=== PATIENT | male | born 1940 | race Caucasian/White ===

== ENCOUNTER 2018-02-25 22:45 | Inpatient (IN) | payer MEDICARE ==
[2018-02-26] MEDS ORDERED: NORMAL SALINE 1000 ML 1,000 ML IV ONE (02:52)
--- NOTE | 2018-02-26 02:53 | ER Document Report ---
ED General - General Chief Complaint: Dizziness Stated Complaint: SHORTNESS OF BREATH Time Seen by Provider: 02/26/18 02:32 Notes: Patient is a 77-year-old male that comes to the emergency department for chief complaint of weakness, dizziness, shortness of breath. He states that when he stands up he feels suddenly lightheaded and short of breath. He denies any chest pain, syncope, fever. Patient states he has been worsening for the past 3 days, he admits that he has been working outside almost constantly with [employer]. He admits his urine is very dark in color. Past medical history includes hypertension, hyperlipidemia, type 2 diabetes. TRAVEL OUTSIDE OF THE [place] IN LAST 30 DAYS: No - Related Data Allergies/Adverse Reactions: No Known Allergies Allergy (Unverified 02/26/18 07:04) Past Medical History - General Information source: Patient, Relative - Social History Smoking Status: Never Smoker Drug Abuse: None Lives with: Family Family History: Reviewed & Not Pertinent - Past Medical History Cardiac Medical History: Reports: Hx Hypercholesterolemia, Hx Hypertension Endocrine Medical History: Reports: Hx Diabetes Mellitus Type 2 - Immunizations Hx Diphtheria, Pertussis, Tetanus Vaccination: Yes Review of Systems - Review of Systems Constitutional: No symptoms reported EENT: No symptoms reported Cardiovascular: See HPI Respiratory: See HPI Gastrointestinal: No symptoms reported Genitourinary: No symptoms reported Male Genitourinary: No symptoms reported Musculoskeletal: No symptoms reported Skin: No symptoms reported Hematologic/Lymphatic: No symptoms reported Neurological/Psychological: No symptoms reported Physical Exam - Vital signs Vitals: Temp Pulse Resp BP Pulse Ox 99.6 F 98 20 116/46 L 93 02/25/18 23:02 02/25/18 23:02 02/25/18 23:02 02/25/18 23:02 02/25/18 23:02 - Notes Notes: GENERAL: Alert, interacts well. No acute distress. HEAD: Normocephalic, atraumatic. EYES: Pupils equal, round, and reactive to light. Yellowish sclera. Extraocular movements intact. ENT: Oral mucosa moist, tongue midline. [Nares patent, no nasal septal hematoma , TM's intact.] NECK: Full range of motion. Supple. Trachea midline. LUNGS: Clear to auscultation bilaterally, no wheezes, rales, or rhonchi. No respiratory distress. HEART: Regular rate and rhythm. ABDOMEN: Soft, non-tender. Non-distended. Bowel sounds present in all 4 quadrants. EXTREMITIES: Moves all 4 extremities spontaneously. No edema, normal radial and dorsalis pedis pulses bilaterally. No cyanosis. BACK: no cervical, thoracic, lumbar midline tenderness. No saddle anesthesia, normal distal neurovascular exam. NEUROLOGICAL: Alert and oriented x3. Normal speech. [cranial nerves II through XII grossly intact]. PSYCH: Normal affect, normal mood. SKIN: Jaundiced skin Course - Re-evaluation Re-evalutation: Patient is jaundiced, however he is alert, well-appearing, clear lungs, soft abdomen, no signs of distress. He is not confused. Chest x-ray unremarkable. CBC shows significant anemia with hemoglobin of 6.5, macrocytic. Chemistry shows total bilirubin of 13.9, direct of 4.2. Urine is very dark. Type and screen has been performed, transfusion blood products ordered. No gross bleeding on exam, Hemoccult is negative for blood. Discussed with Dr. Martin, recommends ultrasound of the spleen as well. Ultrasound of the spleen nonspecific. 02/26/18 07:[address] Carrillo, hematology instructional interventionist, he recommends transfusion, Solu- Medrol 60 mg IV every 6 hours, additional laboratory studies requested. Recommends admission to the hospital. Patient and son are in agreement with this plan. 02/26/18 07:48 Spoke with Dasha Tate NP, patient will be admitted to the [facility]. - Vital Signs Vital signs: Temp Pulse Resp BP Pulse Ox 99.6 F 98 21 H 109/53 L 97 02/25/18 23:02 02/25/18 23:02 02/26/18 07:01 02/26/18 07:01 02/26/18 07:01 - Laboratory Result Diagrams: 02/26/18 02:31 02/26/18 02:31 Laboratory results interpreted by me: 02/26/18 02/26/18 02/26/18 02:31 02:31 02:31 RBC 1.74 L Hgb 6.5 L Hct 18.1 L MCV 104 H MCH 37.2 H Band Neutrophils % 2 L Lymphocytes % (Manual) 12 L Metamyelocytes % 3 H Myelocytes % 1 H BUN 61 H Creatinine 1.33 H Est GFR (Non-Af Amer) 52 L Glucose 126 H Total Bilirubin 13.9 H Direct Bilirubin 4.2 H AST 102 H ALT 18 L Urine Protein Urine Blood Urine Urobilinogen Crossmatch See Detail 02/26/18 02/26/18 04:15 05:32 RBC Hgb Hct MCV MCH Band Neutrophils % Lymphocytes % (Manual) Metamyelocytes % Myelocytes % BUN Creatinine Est GFR (Non-Af Amer) Glucose Total Bilirubin Direct Bilirubin AST ALT Urine Protein 30 H Urine Blood LARGE H Urine Urobilinogen 4.0 H Crossmatch See Detail Discharge - Discharge Clinical Impression: Shortness of breath, Symptomatic anemia, Dizziness, Jaundice Hemolytic anemia Qualifiers: Hemolytic anemia type: acquired, unspecified Qualified Code(s): D59.9 - Acquired hemolytic anemia, unspecified; D59 - Acquired hemolytic anemia Condition: Stable Disposition: ADMITTED INPATIENT Admitting Provider: Hospitalist Unit Admitted: IMCU Referrals: KAUR LEONE MD [Primary Care Provider] - Follow up as needed
[2018-02-26 03:27] LABS: HEMATOCRIT 18.1 % (37.9-51.0); MEAN CORPUSCULAR HEMOGLOBIN 37.2 pg (27.0-33.4); MEAN CORPUSCULAR HGB CONC 35.8 g/dL (32.0-36.0); MEAN CORPUSCULAR VOLUME 104 fl (80-97); PLATELET COUNT 204 10^3/uL (150-450); RED BLOOD COUNT 1.74 10^6/uL (4.35-5.55); RED CELL DISTRIBUTION WIDTH 12.4 % (11.5-14.0); WHITE BLOOD COUNT 8.6 10^3/uL (4.0-10.5)
--- NOTE | 2018-02-26 03:36 | RADIOLOGY REPORT (SQ) ---
EXAM DESCRIPTION: XR CHEST 1 VIEW COMPLETED DATE/TME: 02/26/2018 02:51 CLINICAL HISTORY: short of breath, lightheaded COMPARISON: None. FINDINGS: Single frontal view of the chest. Tortuosity of thoracic aorta. Low lung volumes. Heart is normal enlarged. Leads overlie the chest. No consolidation, pneumothorax, or pleural effusion. No displaced rib fractures identified. Upper abdominal soft tissues are unremarkable. IMPRESSION: 1. No acute pulmonary process identified.
[2018-02-26 03:37] LABS: ALANINE AMINOTRANSFERASE 18 U/L (21-72); ALKALINE PHOSPHATASE 82 U/L (38-126); ASPARTATE AMINO TRANSFERASE 102 U/L (17-59); BILIRUBIN,DIRECT 4.2 mg/dL (0.0-0.4); BILIRUBIN,TOTAL 13.9 mg/dL (0.2-1.3); BLOOD UREA NITROGEN 61 mg/dL (7-20); CALCIUM 9.8 mg/dL (8.4-10.2); CREATINE KINASE 141 U/L (55-170); GLUCOSE 126 mg/dL (75-110); POTASSIUM 4.8 mmol/L (3.6-5.0); TOTAL PROTEIN 7.3 g/dL (6.3-8.2)
[2018-02-26 03:42] LABS: CARBON DIOXIDE 30 mmol/L (22-30); CHLORIDE 106 mmol/L (98-107); SODIUM 141.1 mmol/L (137-145)
[2018-02-26 04:03] LABS: ABSOLUTE MONOCYTES # (MANUAL) 0.5 10^3/uL (0.1-1.4); ABSOLUTE NEUTROPHILS# (MANUAL) 6.6 10^3/uL (1.7-8.2); BAND NEUTROPHILS % (MANUAL) 2 % (3-5); BASOPHILS % (MANUAL) 0 % (0-2); EOSINOPHILS % (MANUAL) 5 % (0-6); LYMPHOCYTES % (MANUAL) 12 % (13-45); METAMYELOCYTES % (MANUAL) 3 % (0); MONOCYTES % (MANUAL) 6 % (3-13); MYELOCYTES % (MANUAL) 1 % (0); SEGMENTED NEUTROPHILS % (MAN) 71 % (42-78); TOTAL CELLS COUNTED 100
[2018-02-26 04:05] LABS: ANISOCYTOSIS 2+; PLATELET COMMENT ADEQUATE; POLYCHROMASIA SLIGHT
[2018-02-26 04:08] LABS: ANION GAP 5 (5-19)
[2018-02-26] MEDS ORDERED: NORMAL SALINE 250 ML IV PRN ×2 (04:18)
[2018-02-26] MEDS ORDERED: ONDANSETRON HCL INJ/PF 4 MG/2 ML SDV IV ONE (04:30)
--- NOTE | 2018-02-26 06:09 | RADIOLOGY REPORT (SQ) ---
CLINICAL DATA: 77-year-old male with hemolysis and low hemoglobin, evaluate spleen. TECHNICAL DATA: Limited sonographic imaging of the left upper quadrant was performed. Comparison: None. FINDINGS: Sonographic imaging of the left upper quadrant reveals the spleen to be normal in size and configuration. The spleen measures 11.5 x 8.7 x 4.2 cm. The spleen appears to be slightly more hypoechoic than the left kidney. The significance of this is not certain. There are some scattered echogenic foci within the spleen consistent with granulomas. Doppler imaging demonstrates normal color flow within the spleen. IMPRESSION: 1. The spleen is normal in size. 2. Decreased echogenicity of the spleen relative to the left kidney of unclear etiology. Underlying chronic renal disease is not excluded. 3. Evidence of prior granulomatous disease.
[2018-02-26 06:23] LABS: APPEARANCE,URINE SLIGHTLY-CLOUDY; BILIRUBIN,URINE NEGATIVE (NEGATIVE); GLUCOSE, URINE NEGATIVE (NEGATIVE); KETONES,URINE NEGATIVE (NEGATIVE); LEUKOCYTE ESTERASE,URINE NEGATIVE (NEGATIVE); NITRITE,URINE NEGATIVE (NEGATIVE); PROTEIN,URINE 30 mg/dL (NEGATIVE); URINE SPECIFIC GRAVITY 1.013
[2018-02-26 06:25] LABS: COLOR,URINE DARK YELLOW
[2018-02-26] MEDS ORDERED: METHYLPREDNISOLONE INJ 40 MG/1 ML SDV IV SCH (07:45)
[2018-02-26 08:07] LABS: ABSOLUTE RETICS # 0.056 10^6/uL (0.028-0.122); RETICULOCYTE COUNT (AUTO) 3.22 % (0.66-2.85)
--- NOTE | 2018-02-26 09:01 | PDOC CONSULTATION ---
Consultation Consult Date: 02/26/18 Attending physician:: ROYCE ZAMARRIPA Consult reason:: Asked by ER to see patient with severe anemia History of Present Illness Admission Date/PCP: 02/26/18 08:13 KAUR LEONE MD Patient complains of: Weakness, shortness of breath History of Present Illness: ERNST ARAUJO is a 77 year old male with recent history of weakness and shortness of breath. His son was with him at bedside, over the last 2-3 weeks has been having increasing shortness of breath and weakness, over the last 2 days prior to admission he has had dark urine, upon presentation he had a hemoglobin of 6.5, MCV 101, reticulocyte count is elevated, Hemoccult is negative, bilirubin is 13, direct is 4. So mostly in direct bilirubin. [place] to be consistent with hemolytic anemia. He does not have any new medications that have started. He does not have any fevers chills sweats or any other signs or symptoms of infection. He denies any black stool or blood in stool or any other signs or symptoms of bleeding. Prior to this, he was being seen by Dr. Leone, he just started seeing him about a month ago. Prior to that he was living in [place]. He tells me about 3 months ago he went to the ED in [place] because he was not feeling good, he does not remember what they did or what they told him at that time. LDH and haptoglobin are pending. I instructed the ER to give him 60 mg of Solu-Medrol and put him on Solu-Medrol 60 mg every 6 hours. Blood is being typed and crossed, and antibody evaluation is being done. Past Medical History Cardiac Medical History: Reports: DVT - Left lower extremity DVT 2014, was taken off anticoagulation, Hyperlipidema, Hypertension Endocrine Medical History: Reports: Diabetes Mellitus Type 2 Past Surgical History Past Surgical History: Reports: Herniorrhaphy Social History Information Source: Patient Lives with: Family Smoking Status: Former Smoker Cigarettes Packs Per Day: 1 Number of Years Smokin Last Time Smoked: 35 years ago Frequency of Alcohol Use: Occasional Drugs: None Hx Prescription Drug Abuse: No - Advance Directive Resuscitation Status: Full Code Family History Family History: Reviewed & Not Pertinent Parental Family History Reviewed: Yes Children Family History Reviewed: Yes Sibling(s) Family History Reviewed.: Yes Medication/Allergy Allergies/Adverse Reactions: No Known Allergies Allergy (Unverified 02/26/18 07:04) Review of Systems Constitutional: PRESENT: fatigue, weakness Cardiovascular: PRESENT: dyspnea on exertion Respiratory: PRESENT: dyspnea Gastrointestinal: ABSENT: abdominal pain, constipation, diarrhea, hematemesis, hematochezia, nausea, vomiting Integumentary: ABSENT: rash, wounds Neurological: ABSENT: abnormal gait, abnormal speech, confusion, dizziness, focal weakness, syncope Psychiatric: ABSENT: anxiety, depression, homidical ideation, suicidal ideation Physical Exam Vital Signs: Temp Pulse Resp BP Pulse Ox 99.6 F 98 21 H 109/53 L 97 02/25/18 23:02 02/25/18 23:02 02/26/18 07:01 02/26/18 07:01 02/26/18 07:01 General appearance: PRESENT: no acute distress Head exam: PRESENT: atraumatic Eye exam: PRESENT: scleral icterus Mouth exam: PRESENT: dry mucosa Respiratory exam: PRESENT: clear to auscultation katie. ABSENT: rales, rhonchi, wheezes Cardiovascular exam: PRESENT: tachycardia GI/Abdominal exam: PRESENT: normal bowel sounds, soft. ABSENT: distended, guarding, mass, organolmegaly, rebound, tenderness Rectal exam: PRESENT: deferred Neurological exam: PRESENT: alert, awake, oriented to person, oriented to place , oriented to time, oriented to situation, CN II-XII grossly intact. ABSENT: motor sensory deficit Skin exam: PRESENT: jaundice Results Impressions: Chest X-Ray 02/26/18 02:51 IMPRESSION: 1. No acute pulmonary process identified. Abdomen Ultrasound 02/26/18 04:28 IMPRESSION: 1. The spleen is normal in size. 2. Decreased echogenicity of the spleen relative to the left kidney of unclear etiology. Underlying chronic renal disease is not excluded. 3. Evidence of prior granulomatous disease. Status: Image reviewed by me Assessment & Plan - Diagnosis (1) Hemolytic anemia Qualifiers: Hemolytic anemia type: acquired, unspecified Qualified Code(s): D59.9 - Acquired hemolytic anemia, unspecified; D59 - Acquired hemolytic anemia Is this a current diagnosis for this admission?: Yes Plan: He certainly does appear to have a hemolytic anemia, direct antibody test as well as evaluation by blood bank is being done. I have started him on high- dose steroids. Will initiate folic acid 1 mg daily. Ultimately may benefit from IVIG and Rituxan. Patient should be admitted to the hospitalist team and we will continue to see patient. - Time Time Spent: Greater than 70 Minutes - Inpatient Certification Based on my medical assessment, after consideration of the patient's comorbidities, presenting symptoms, or acuity I expect that the services needed warrant INPATIENT care.: Yes I certify that my determination is in accordance with my understanding of Medicare's requirements for reasonable and necessary INPATIENT services [42 CFR 412.3e].: Yes Medical Necessity: Risk of Complication if Not Cared For in Hospital
[2018-02-26] MEDS ORDERED: ACETAMINOPHEN 325 MG TABLET PO PRN (09:25)
[2018-02-26] MEDS ORDERED: ENOXAPARIN SODIUM INJ 30 MG/0.3 ML DISP.SYRIN SUBCUT SCH (10:00)
[2018-02-26] MEDS ORDERED: FOLIC ACID 1 MG TABLET PO SCH (12:00)
--- NOTE | 2018-02-26 12:25 | EKG REPORT ---
SEVERITY:- ABNORMAL ECG - SINUS TACHYCARDIA LEFT BUNDLE BRANCH BLOCK : Confirmed by: Maame Griffin 26-Feb-2018 12:25:12
[2018-02-26] MEDS ORDERED: HYDRALAZINE HCL INJ/PF 20 MG/1 ML SDV IV PRN (13:13)
--- NOTE | 2018-02-26 13:13 | PDOC H&P ---
History of Present Illness Admission Date/PCP: 02/26/18 08:13 KAUR BAIRES MD Patient complains of: SOB & dizziness History of Present Illness: ERNST ARAUJO is a 77 year old male who presents to [facility] ED with dizziness, weakness and shortness of breath. Over the last 2-3 weeks he reports increasing shortness of breath and weakness. Denies syncope. States physical activity exacerbates his symptoms and even though he feels fatigued, he has been having trouble sleeping. The patient reports that he developed dark urine over the last 2 days, which is what prompted him to come to the hospital. He denies any black stool or blood in stool or any other signs or symptoms of bleeding. The patient denies any fevers, chills, ill contacts, sweats or any other signs or symptoms of infection. Upon arrival to [facility] ED, his vital signs were BP 116/46 HR 98 RR 20 T 99.6 SPO2 93% on RA. EKG showed NSR. Laboratory results revealed significant anemia - Hgb of 6.5, MCV 101, elevated reticulocyte count, bilirubin is 13, direct is 4. Hemoccult negative. [employer], Dr. Madrid, was consulted by ED provider. Mingus that the patient likely has hemolytic anemia, etiology unknown. Plan to admit to hospitalist service with heme/onc consulted. Of note, the patient is currently under the care of Dr. Baires, whom he just started seeing about a month ago. Prior to that the patient was living in [place]. He states he went to the ER approximately 3 months ago for similar symptoms, he does not remember what they did or what they told him at that time. Past Medical History Cardiac Medical History: Reports: DVT - Left lower extremity DVT 2014, was taken off anticoagulation, Hyperlipidema, Hypertension Endocrine Medical History: Reports: Diabetes Mellitus Type 2 Renal/ History Note: BPH Psychiatric Medical History: Denies: Depression Past Surgical History Past Surgical History: Reports: Herniorrhaphy Social History Information Source: Patient Lives with: Family Smoking Status: Former Smoker Cigarettes Packs Per Day: 0.5 Number of Years Smokin Last Time Smoked: 35 years ago Frequency of Alcohol Use: Social Hx Recreational Drug Use: No Drugs: None Hx Prescription Drug Abuse: No - Advance Directive Resuscitation Status: Full Code Family History Family History: DM Parental Family History Reviewed: Yes - unknown Children Family History Reviewed: Unknown Sibling(s) Family History Reviewed.: Yes Medication/Allergy Home Medications: Albuterol Sulfate [Proair HFA Inhalation Aerosol 8.5 gm MDI] 2 puff IH Q6HP PRN 02/26/18 Atorvastatin Calcium [Lipitor 80 mg Tablet] 80 mg PO QHS 02/26/18 Finasteride [Proscar 5 mg Tablet] 5 mg PO DAILY 02/26/18 Fluticasone/Salmeterol [Advair 250-50 Diskus 14 Dose/Diskus] 1 puff IH Q12 02/26 Lisinopril [Prinivil 5 mg Tablet] 5 mg PO DAILY 02/26/18 Meclizine HCl [Antivert 25 mg Tablet] 25 mg PO Q8HP PRN 02/26/18 Metformin HCl [Metformin HCl ER] 500 mg PO BID 02/26/18 Tamsulosin HCl [Flomax 0.4 mg Cap.sr] 0.4 mg PO DAILY 02/26/18 Torsemide [Demadex 20 mg Tablet] 10 mg PO DAILY 02/26/18 Allergies/Adverse Reactions: No Known Allergies Allergy (Verified 02/26/18 09:42) Review of Systems All systems: reviewed and no additional remarkable complaints except as stated Physical Exam Vital Signs: Temp Pulse Resp BP Pulse Ox 99.5 F 98 29 H 103/48 L 98 02/26/18 09:40 02/25/18 23:02 02/26/18 11:00 02/26/18 10:01 02/26/18 10:53 Intake & Output 02/25/18 02/26/18 02/27/18 06:59 06:59 06:59 Weight 115.4 kg General appearance: PRESENT: no acute distress, morbidly obese Head exam: PRESENT: atraumatic Eye exam: PRESENT: scleral icterus Mouth exam: PRESENT: moist Neck exam: PRESENT: full ROM Respiratory exam: PRESENT: clear to auscultation katie, symmetrical, unlabored Cardiovascular exam: PRESENT: +S1, +S2. ABSENT: diastolic murmur, systolic murmur Pulses: PRESENT: normal radial pulses, normal dorsalis pedis pul Vascular exam: PRESENT: pallor GI/Abdominal exam: PRESENT: distended, normal bowel sounds, soft. ABSENT: tenderness Rectal exam: PRESENT: deferred Extremities exam: PRESENT: full ROM. ABSENT: pedal edema Musculoskeletal exam: PRESENT: ambulatory, full ROM Neurological exam: PRESENT: alert, awake, oriented to person, oriented to place , oriented to time, oriented to situation Psychiatric exam: PRESENT: appropriate affect Skin exam: PRESENT: jaundice Results Impressions: Chest X-Ray 02/26/18 02:51 IMPRESSION: 1. No acute pulmonary process identified. Abdomen Ultrasound 02/26/18 04:28 IMPRESSION: 1. The spleen is normal in size. 2. Decreased echogenicity of the spleen relative to the left kidney of unclear etiology. Underlying chronic renal disease is not excluded. 3. Evidence of prior granulomatous disease. Status: Imported from PACS Assessment & Plan - Diagnosis (1) Hemolytic anemia Qualifiers: Hemolytic anemia type: acquired, unspecified Qualified Code(s): D59.9 - Acquired hemolytic anemia, unspecified; D59 - Acquired hemolytic anemia Is this a current diagnosis for this admission?: Yes Plan: Likely autoimmune etiology Preliminary [facility] Direct Antiglobulin Test (Tammie) was positive, sent to [employer] for confirmation Elevated LDH (1620), reticulocyte count (3.22) and Bilirubin, haptoglobin pending Treat with scheduled IV Solumedrol Trend daily CBCs If anemia does not respond to steroid treatment, consider IVIG and/or Rituxan No plan to transfuse PRBC, regardless of Hgb/Hct, unless patient becomes hemodynamically unstable (2) Creatinine elevation Is this a current diagnosis for this admission?: Yes Plan: Creatinine 1.33 No history of lab work at this hospital, unable to compare/establish baseline at this time Patient denies history of kidney disease Check FeNa to evaluate for pre-renal etiology (3) HTN (hypertension) Qualifiers: Hypertension type: essential hypertension Qualified Code(s): I10 - Essential (primary) hypertension Is this a current diagnosis for this admission?: Yes Plan: Patient endorses history of HTN We will resume home dose antihypertensives Hydralazine IV as needed for SBP>170 (4) HLD (hyperlipidemia) Qualifiers: Hyperlipidemia type: unspecified Qualified Code(s): E78.5 - Hyperlipidemia , unspecified Is this a current diagnosis for this admission?: Yes Plan: Patient endorses history of HLD Resume home dose medications Check lipid panel in a.m. - Time Time Spent: 30 to 50 Minutes Medications reviewed and adjusted accordingly: Yes Anticipated discharge: Home - Inpatient Certification Based on my medical assessment, after consideration of the patient's comorbidities, presenting symptoms, or acuity I expect that the services needed warrant INPATIENT care.: Yes I certify that my determination is in accordance with my understanding of Medicare's requirements for reasonable and necessary INPATIENT services [42 CFR 412.3e].: Yes Medical Necessity: Need Close Monitoring Due to Risk of Patient Decompensation, Risk of Complication if Not Cared For in Hospital - Plan Summary Plan Summary: ADMIT TO HOSPITALIST. CONSULT HEMATOLOGY. SCHEDULED STEROIDS AND DAILY IRON. DAILY CBC. PLAN TO TRANSFUSE ONLY IF PATIENT BECOMES HEMODYNAMICALLY UNSTABLE.
[2018-02-26] MEDS ORDERED: DEXTROSE 40% GEL 15 GM TUBE PO PRN ×2 (13:16)
[2018-02-26] MEDS ORDERED: INSULIN LISPRO 100 UNIT/ML 3 ML VIAL SUBCUT PRN (13:16)
[2018-02-26] MEDS ORDERED: GLUCAGON,HUMAN RECOMB 1 MG INJ IM PRN (13:16)
[2018-02-26] MEDS ORDERED: DEXTROSE 50%-WATER 25 GM/50 ML DISP.SYRIN IV PRN ×2 (13:16)
[2018-02-26] MEDS ORDERED: ALBUTEROL SULFATE HFA (90 MCG/PUFF) 200 PUFF/8.5 GM MDI IH PRN (13:17)
--- NOTE | 2018-02-26 14:57 | RADIOLOGY REPORT (SQ) ---
EXAM DESCRIPTION: CHEST SINGLE VIEW COMPLETED DATE/TIME: 02/26/2018 2:44 pm REASON FOR STUDY: SOB COMPARISON: 02/26/2018 EXAM PARAMETERS: NUMBER OF VIEWS: One view. TECHNIQUE: Single frontal radiographic view of the chest acquired. RADIATION DOSE: NA LIMITATIONS: None. FINDINGS: LUNGS AND PLEURA: No opacities, masses or pneumothorax. No pleural effusion. MEDIASTINUM AND HILAR STRUCTURES: No masses. Contour normal. HEART AND VASCULAR STRUCTURES: Cardiomegaly, new finding since prior examination performed earlier o n the same date. BONES: No acute findings. HARDWARE: None in the chest. OTHER: No other significant finding. IMPRESSION: 1. Interval new finding of cardiomegaly since the prior examination performed earlier. Correlation suggested. 2. No acute pulmonary consolidation. TECHNICAL DOCUMENTATION: JOB ID: [id number] [employer]- All Rights Reserved Reading location - IP/workstation name: [email or web address] ENRIQUE
[2018-02-26] MEDS ORDERED: METHYLPREDNISOLONE INJ 125 MG/2 ML SDV IV SCH (15:00)
[2018-02-26 15:20] LABS: CREATINE KINASE MB 4.21 ng/mL (<4.55)
[2018-02-26 15:25] LABS: TROPONIN I 0.253 ng/mL
[2018-02-26 16:04] VITALS: BP 109/49
--- NOTE | 2018-02-26 18:18 | PDOC TRANSFER SUMMARY ---
General Admission Date/PCP: 02/26/18 08:13 KAUR BAIRES MD Admission Date: 02/26/18 Transfer Date: 02/26/18 Accepting Facility: [facility] Accepting Physician: Dr. John Wills Resuscitation Status: Full Code - Transfer Diagnosis (1) Hemolytic anemia Is this a current diagnosis for this admission?: Yes (2) Creatinine elevation Is this a current diagnosis for this admission?: Yes (3) HTN (hypertension) Is this a current diagnosis for this admission?: Yes (4) HLD (hyperlipidemia) Is this a current diagnosis for this admission?: Yes - Transfer Medications Home Medications: Albuterol Sulfate [Proair HFA Inhalation Aerosol 8.5 gm MDI] 2 puff IH Q6HP PRN 02/26/18 Atorvastatin Calcium [Lipitor 80 mg Tablet] 80 mg PO QHS 02/26/18 Finasteride [Proscar 5 mg Tablet] 5 mg PO DAILY 02/26/18 Fluticasone/Salmeterol [Advair 250-50 Diskus 14 Dose/Diskus] 1 puff IH Q12 02/26 Lisinopril [Prinivil 5 mg Tablet] 5 mg PO DAILY 02/26/18 Meclizine HCl [Antivert 25 mg Tablet] 25 mg PO Q8HP PRN 02/26/18 Metformin HCl [Metformin HCl ER] 500 mg PO BID 02/26/18 Tamsulosin HCl [Flomax 0.4 mg Cap.sr] 0.4 mg PO DAILY 02/26/18 Torsemide [Demadex 20 mg Tablet] 10 mg PO DAILY 02/26/18 Transfer Medications: Current Medications Acetaminophen (Tylenol 325 Mg Tablet) 975 mg PO Q6HP PRN PRN Reason: FOR PAIN OR TEMP Stop: 03/28/18 09:24 Albuterol (Proair Hfa Inhalation Aerosol 8.5 Gm Mdi) 2 puff IH Q6HP PRN PRN Reason: FOR SHORTNESS OF BREATH Stop: 03/28/18 13:16 Atorvastatin Calcium (Lipitor 80 Mg Tablet) 80 mg PO QHS [facility] Stop: 03/28/18 21:59 Dextrose (Dextrose Inj 50% Syringe (25 Gm/50 Ml)) 12.5 gm IV PRN PRN; Protocol PRN Reason: FOR BG 50-69 IN ALERT PATIENT Stop: 03/28/18 13:15 Dextrose (Dextrose Inj 50% Syringe (25 Gm/50 Ml)) 25 gm IV PRN PRN; Protocol PRN Reason: PER PROTOCOL Stop: 03/28/18 13:15 Enoxaparin Sodium (Lovenox Inj 30 Mg/0.3 Ml Disp.Syrin) 30 mg SUBCUT DAILY [facility] Stop: 03/28/18 09:59 Last Admin: 02/26/18 12:35 Dose: Not Given Finasteride (Proscar 5 Mg Tablet) 5 mg PO DAILY [facility] Stop: 03/29/18 09:59 Folic Acid (Folvite 1 Mg Tablet) 1 mg PO DAILY [facility] Stop: 03/28/18 11:59 Last Admin: 02/26/18 12:39 Dose: 1 mg Glucagon (Glucagen Inj 1 Mg Vial) 1 mg IM PRN PRN; Protocol PRN Reason: Evaluate for BG < 70 Stop: 03/28/18 13:15 Glucose (Glutose 40% Gel 15 Gm Tube) 30 gm PO PRN PRN; Protocol PRN Reason: FOR BG < 50 IN ALERT PATIENT Stop: 03/28/18 13:15 Glucose (Glutose 40% Gel 15 Gm Tube) 15 gm PO PRN PRN; Protocol PRN Reason: FOR BG 50-69 IN ALERT PATIENT Stop: 03/28/18 13:15 Hydralazine HCl (Apresoline Inj/Pf 20 Mg/1 Ml Sdv) 10 mg IV Q6HP PRN PRN Reason: Give For Sbp > 170 / Dbp > 110 Stop: 03/28/18 13:12 Sodium Chloride (Nacl 0.9% 250 Ml Iv Soln) 250 mls @ 30 mls/hr IV .DURING TRANSFUSION PRN PRN Reason: THIS MED IS NOT "PRN" Stop: 02/27/18 04:17 Sodium Chloride (Nacl 0.9% 250 Ml Iv Soln) 250 mls @ 0 mls/hr IV CONTINUOUS PRN ; As Directed PRN Reason: AFTER EACH UNIT Stop: 02/27/18 04:17 Insulin Human Lispro (Humalog Insulin 100 Unit/1 Ml 3 Ml Vial) 0 - 12 unit SUBCUT ACHSP PRN; Protocol PRN Reason: PER PROTOCOL Stop: 03/28/18 13:15 Lisinopril (Prinivil 5 Mg Tablet) 5 mg PO DAILY [facility] Stop: 03/29/18 09:59 Methylprednisolone Sodium Succinate (Solu-Medrol Inj/Pf 125 Mg/2 Ml Sdv) 60 mg IV Q6A [place] Stop: 03/28/18 14:59 Last Admin: 02/26/18 14:42 Dose: 60 mg Fluticasone/Salmeterol (Advair 250-50 Diskus 14 Dose/Diskus) 1 inh IH Q12 [place] Stop: 03/28/18 21:59 Tamsulosin HCl (Flomax 0.4 Mg Cap.Sr) 0.4 mg PO DAILY [facility] Stop: 03/29/18 09:59 - Allergies Allergies/Adverse Reactions: No Known Allergies Allergy (Verified 02/26/18 09:42) Hospital Course Hospital Course: H&P: ERNST ARAUJO is a 77 year old male who presents to [facility] ED with dizziness, weakness and shortness of breath. Over the last 2-3 weeks he reports increasing shortness of breath and weakness. Denies syncope. States physical activity exacerbates his symptoms and even though he feels fatigued, he has been having trouble sleeping. The patient reports that he developed dark urine over the last 2 days, which is what prompted him to come to the hospital. He denies any black stool or blood in stool or any other signs or symptoms of bleeding. The patient denies any fevers, chills, ill contacts, sweats or any other signs or symptoms of infection. Upon arrival to [facility] ED, his vital signs were BP 116/46 HR 98 RR 20 T 99.6 SPO2 93% on RA. EKG showed LBBB, unclear if this is new or old since patient just recently moved to [place] from [place]. Laboratory results revealed significant anemia - Hgb of 6.5, MCV 101, elevated reticulocyte count, bilirubin is 13, direct is 4. Hemoccult negative. LDH 1320. Tammie positive (+) . Helicopter Engineer, Dr. Madrid, was consulted by ED provider. [place] that the patient likely has hemolytic anemia, etiology unknown. Plan to admit to hospitalist service with heme/onc consulted. Of note, the patient is currently under the care of Dr. Baires, whom he just started seeing about a month ago. Prior to that the patient was living in [place]. He states he went to the ER approximately 3 months ago for similar symptoms, he does not remember what they did or what they told him at that time. Patient became acutely tachypneic today (02/26/2018) at 1400. Upon assessment, he was pale, diaphoretic and mildly tachypneic. His lungs were clear, S1S2, palpable pulses in all extremities, no evidence of peripheral edema, nor was there evidence of acute blood loss. Additionally, he was complaining of midsternal chest pain, exacerbated by inhalation. VS at that time were: HR 110 RR 25-29, SPO2 > 90% on 8L face mask, BP 110/59. EKG showed LBBB, no evidence of acute infarction or ischemia. Troponin increased from 0.068-->0.25. Cardiology was made aware but due to the patient's hemolytic anemia he is not a candidate for traditional ACS medications. At the time of this documentation - Chest CTA results are still pending. Radiologist was called for an unofficial read, states there "might be bilateral small lower lobe pulmonary emboli." Hematology was notified of the patient's condition, the risk v. benefit of treating the PE (versus bleeding) with weight based lovenox is too high, the decision was made to not anti-coagulate the patient. Additionally, there was a brief consideration to transfuse the patient to treat his symptomatic anemia, but after talking to [facility] blood bank they informed the medical staff that the patient would most likely have a hemolytic transfusion reaction due to his unknown antibodies - even if we were to administer least incompatible blood products. Given the patient's acute decompensation and inability to safely treat his hemolytic anemia, the decision was made to pursue transfer to a larger tertiary facility. Dr. John Wills, an Licensed Dispensing Optician at [facility], has graciously accepted. Physical Exam Vital Signs: Temp Pulse Resp BP Pulse Ox 98.5 F 99 18 109/49 L 98 02/26/18 11:22 02/26/18 14:00 02/26/18 11:22 02/26/18 11:22 02/26/18 11:22 Intake & Output 02/25/18 02/26/18 02/27/18 06:59 06:59 06:59 Output Total 300 Balance -300 Weight 115.4 kg Results Laboratory Results: 02/26/18 02/26/1818 14:42 14:42 14:42 Creatine Kinase 130 CK-MB (CK-2) 4.21 Troponin I 0.253 NT-Pro-B Natriuret Pep 2250 H Impressions: Chest X-Ray 02/26/18 02:51 IMPRESSION: 1. No acute pulmonary process identified. Abdomen Ultrasound 02/26/18 04:28 IMPRESSION: 1. The spleen is normal in size. 2. Decreased echogenicity of the spleen relative to the left kidney of unclear etiology. Underlying chronic renal disease is not excluded. 3. Evidence of prior granulomatous disease. Status: Imported from PACS Plan Discharge Plan: TRANSFER TO [facility] Time Spent: Greater than 30 Minutes
--- NOTE | 2018-02-26 19:39 | EKG REPORT ---
SEVERITY:- ABNORMAL ECG - SINUS TACHYCARDIA LEFT BUNDLE BRANCH BLOCK : Confirmed by: Maame Griffin 26-Feb-2018 19:38:42
[2018-02-26 19:54] LABS: PATH REVIEW PATHOLOGIST REVIEWED
[2018-02-26] MEDS ORDERED: ATORVASTATIN CALCIUM 80 MG TABLET PO SCH (22:00)
[2018-02-26] MEDS ORDERED: FLUTICASONE/SALMETEROL DISKUS 250-50 MCG/DOSE IH SCH (22:00)
--- NOTE | 2018-02-27 09:19 | RADIOLOGY REPORT (SQ) ---
EXAM DESCRIPTION: CTA CHEST COMPLETED DATE/TIME: 02/26/2018 5:00 pm REASON FOR STUDY: SOB / EVALUATE FOR PE COMPARISON: AP chest 02/26/2018 TECHNIQUE: CT scan of the chest performed using helical scanning technique with dynamic intravenous contrast injection. Images reviewed with lung, soft tissue and bone windows. Reconstructed coronal and sagittal MPR images reviewed. Additional 3 dimensional post-processing performed to develop Maximal Intensity Projection images (LA P). All images stored on PACS. All CT scanners at this facility use dose modulation, iterative reconstruction, and/or weight based d osing when appropriate to reduce radiation dose to as low as reasonably achievable (ALARA). [facility]: Dose Right [facility]: CareDose [facility]: Dose Right [facility]: Teradose 4D [facility]: Stand Offer CONTRAST TYPE AND DOSE: contrast/concentration: Isovue 350.00 mg/ml; Total Contrast Delivered: 86.0 ml; Total Saline Delivered: 100.0 ml Contrast bolus optimized for the pulmonary arteries. Not diagnostic for the aorta. RENAL FUNCTION: Creatinine 1.3 RADIATION DOSE: CT Rad equipment meets quality standard of care and radiation dose reduction techniq ues were employed. CTDIvol: 33.1 - 33.3 mGy. DLP: 1212 mGy-cm. . LIMITATIONS: None. FINDINGS: LUNGS AND PLEURA: No masses, infiltrates, or pneumothorax. No pleural effusions or pleura l calcifications. AORTA AND GREAT VESSELS: No aneurysm. Contrast bolus not optimized for the aorta. HEART: No pericardial effusion. No significant coronary artery calcifications. PULMONARY ARTERIES: Multiple small emboli are present the distal right main pulmonary artery extendin g into the right upper lobe pulmonary artery. This is best shown on axial images 42 through 48. HILAR AND MEDIASTINAL STRUCTURES: No adenopathy. There is diffuse esophageal wall thickening which c ould be seen in esophagitis. Small hiatal hernia present. HARDWARE: None in the chest. UPPER ABDOMEN: No significant findings. Limited exam. THYROID AND OTHER SOFT TISSUES: No masses. No adenopathy. BONES: No acute or significant finding. 3D MIPS: Confirm above findings. OTHER: No other significant finding. IMPRESSION: Small pulmonary emboli in the distal right main pulmonary artery extending into the righ t upper lobe pulmonary artery. Preliminary report provided by Dr. Camacho to Dasha Tate, [id number] [id number] hours COMMENT: This report was discussed with Dr. Figueroa, 0900 hours 02/27/2018 Quality ID # [id number]: Final reports with documentation of one or more dose reduction techniques (e.g., Au tomated exposure control, adjustment of the mA and/or kV according to patient size, use of iterative reconstruction technique) TECHNICAL DOCUMENTATION: JOB ID: [id number] [employer]- All Rights Reserved Reading location - IP/workstation name: [email or web address] [id number]
[2018-02-27 09:27] LABS: HEMOGLOBIN 6.5 g/dL (13.5-17.0)
[2018-02-27] MEDS ORDERED: LISINOPRIL 5 MG TABLET PO SCH (10:00)
[2018-02-27] MEDS ORDERED: FINASTERIDE 5 MG TABLET PO SCH (10:00)
[2018-02-27] MEDS ORDERED: TAMSULOSIN HCL 0.4 MG CAP.SR.24H PO SCH (10:00)
== END 2018-02-26 19:30 | disposition short-term general hospital (02) | DRG 808 ==
LOC: ER 22:45 → EH 02-26 08:13 → 3N 02-26 11:20
PROVIDERS: ADMIT Emergency Medicine; ATTEND Emergency Medicine
DX: D59.9 Acquired hemolytic anemia, unspecified (principal); I26.99 Other pulmonary embolism without acute cor pulmonale; R79.89 Other specified abnormal findings of blood chemistry; I44.7 Left bundle-branch block, unspecified; R06.82 Tachypnea, not elsewhere classified; R07.9 Chest pain, unspecified; I10 Essential (primary) hypertension; E11.9 Type 2 diabetes mellitus without complications; R42 Dizziness and giddiness; E78.5 Hyperlipidemia, unspecified; Z86.718 Personal history of other venous thrombosis and embolism; Z87.891 Personal history of nicotine dependence; Z83.3 Family history of diabetes mellitus; Z79.84 Long term (current) use of oral hypoglycemic drugs
CPT/HCPCS: 36415; 71045; 71275; 76705; 80053; 81001; 82272; 82550; 82553; 82570; 82962; 83010; 83615; 83880; 84300; 84484; 85025; 85045; 86850; 86870; 86880; 86900; 86901; 87086; 93005; 93010; 96361; 96374; 99285; J2920; J2930; J3490